=== PATIENT | female | born 1975 | race Caucasian/White ===

== ENCOUNTER → 2017-05-30 | Outpatient (CLI) | payer BC ==
[~2017-05-30] MED LIST: ASCO500T3 PO; B-COTAB18 PO; MULTTAB58 PO; OXYC-57 PO; Vitamin D PO
--- NOTE | 2017-05-30 16:09 | DIAGNOSTIC IMAGING REPORT ---
RIBS BILATERAL WITH PA CHEST CLINICAL HISTORY: COUGH COMPARISON STUDY: Chest 01/23/2016. FINDINGS: Slightly displaced left anterolateral 10th rib fracture. No pneumothorax. No right rib fractures. The heart is normal in size. No pleural effusions. The lungs are clear. IMPRESSION: Slightly displaced left anterolateral 10th rib fracture. No pneumothorax. Electronically signed by: Mundo Navarro M.D. 05/30/2017 4:08 PM Dictated Date/Time: 05/30/2017 4:05 PM
== END | disposition home or self-care (01) ==
LOC: C.RAD 15:23
PROVIDERS: ATTEND Student in an Organized Health Care Education/Training Program
DX: R05 Cough (principal); S22.32XA Fracture of one rib, left side, initial encounter for closed fracture

== ENCOUNTER → 2017-08-19 | Outpatient (CLI) | payer OTHER | END | disposition home or self-care (01) | LOC: C.MAMM 15:38 | PROVIDERS: ATTEND Physician Assistant | DX: S22.39XA Fracture of one rib, unspecified side, initial encounter for closed fracture (principal); X58.XXXA Exposure to other specified factors, initial encounter ==

== ENCOUNTER → 2017-09-24 | Outpatient (CLI) | payer OTHER ==
--- NOTE | 2017-09-24 11:07 | DIAGNOSTIC IMAGING REPORT ---
Right RIBS UNILATERAL WITH PA CHEST CLINICAL HISTORY: [id number] Fracture of rib, right rib pain COMPARISON STUDY: 05/30/2017 FINDINGS: The erect chest reveals no pneumothorax. There is no focal pulmonary consolidation. The patient appears hyperinflated. There are healing fractures of the right fifth, sixth, seventh, eighth, and ninth ribs. IMPRESSION: Healing fractures of the right fifth through ninth ribs. No evidence of pneumothorax. Electronically signed by: Stephan Briseno M.D. 09/24/2017 11:05 AM Dictated Date/Time: 09/24/2017 11:02 AM
== END | disposition home or self-care (01) ==
LOC: C.RAD1850 10:44
PROVIDERS: ATTEND Physician Assistant
DX: S22.39XA Fracture of one rib, unspecified side, initial encounter for closed fracture (principal); X58.XXXA Exposure to other specified factors, initial encounter